=== PATIENT | female | born 1935 | race Caucasian/White ===

== ENCOUNTER 2017-06-23 19:35 | Emergency (ER) | payer MEDICARE ==
[~2017-06-23] VITALS: Ht 165.1 cm; Wt 76.4 kg
[2017-06-23 19:39] VITALS: BP 241/114; PULSE 92; RESP 20; TEMP 98.5; O2SAT 97
--- NOTE | 2017-06-23 20:37 | RADRPT ---
EXAM DATE/TIME: 06/23/2017 20:05 [facility] COMPARISON: No previous studies available for comparison. INDICATIONS : Left humerus pain after fall over dog. MEDICAL HISTORY : None. SURGICAL HISTORY : None. ENCOUNTER: Initial ACUITY: 1 day PAIN SCORE: 10/10 LOCATION: Left proximal humerus. FINDINGS: There is a proximal humeral neck fracture. No dislocation. No other fractures are seen. Bones are ost eopenic. CONCLUSION: 1. Humeral neck fracture with mild displacement. Darvin Merino MD on June 23, 2017 at 20:35 Board Certified Radiologist. This report was verified electronically.
[2017-06-23] MEDS ORDERED: TRAM50 PO (21:33)
--- NOTE | 2017-06-23 21:34 | PD ---
HPI Chief Complaint: Fall Time Seen by Provider: 21:24 Travel History International Travel<30 days: No Contact w/Intl Traveler<30days: No Traveled to known affect area: No History of Present Illness HPI Patient is an 82-year-old female presents emergency department for evaluation of left shoulder and left elbow pain after tripping over her dog at home. Patient denies adamantly hitting her head or her neck. Denies any other injuries to her chest abdomen pelvis lower extremities right upper extremity. Patient states the pain is fairly severe of her left shoulder, radiates down her left elbow, context as above, associated signs symptoms as above. Started just prior to arrival. PFSH Past Medical History Narrative Medical Hypercholesterolemia, hypertension Past Surgical History Narrative Surgical Mastectomy on the right Social History Tobacco Use: No Allergies-Medications (Allergen,Severity, Reaction): Coded Allergies: latex (Unverified Allergy, Severe, 11/04/16) Reported Meds & Prescriptions Reported Meds & Active Scripts Active Ultram (Tramadol HCl) 50 Mg Tab 50 Mg PO Q6H PRN Reported [Multivitamin] 1 Tab PO DAILY [Fish Oil] 3 Tab PO DAILY Lisinopril 20 Mg Tab 20 Mg PO DAILY Clonidine (Clonidine HCl) 0.1 Mg Tab 0.1 Mg PO BID Amlodipine (Amlodipine Besylate) 5 Mg Tab 5 Mg PO DAILY Pravastatin 80 Mg Tab 80 Mg PO DAILY Review of Systems Except as stated in HPI: all other systems reviewed are Neg Physical Exam Narrative GENERAL: Well-nourished, well-developed patient. Appears somewhat uncomfortable peer SKIN: Focused skin assessment warm/dry. HEAD: Normocephalic. Atraumatic EYES: No scleral icterus. No injection or drainage. NECK: Supple, trachea midline. No JVD or lymphadenopathy. CARDIOVASCULAR: Regular rate and rhythm without murmurs, gallops, or rubs. RESPIRATORY: Breath sounds equal bilaterally. No accessory muscle use. GASTROINTESTINAL: Abdomen soft, non-tender, nondistended. MUSCULOSKELETAL: No cyanosis, or edema. Significant tenderness to proximal humerus, no tenderness over the elbow, pulse motor and sensory intact distally in all 4 extremity's, no midline CT or L-spine tenderness, no vega signs no raccoons eyes. BACK: Nontender without obvious deformity. No CVA tenderness. Data Data Last Documented VS Vital Signs Date Time Temp Pulse Resp B/P (MAP) Pulse Ox O2 Delivery O2 Flow Rate FiO2 06/23/17 22:56 06/23/17 21:37 99 16 98 Room Air 06/23/17 19:39 98.5 Orders Orders Humerus (Min 2vws) (06/23/17 ) Elbow, Limited (Ap&Lat) (06/23/17 ) Tramadol (Ultram) (06/23/17 21:45) Ed Discharge Order (06/23/17 22:19) Sling And Swathe (06/23/17 ) MDM Medical Decision Making Medical Screen Exam Complete: Yes Emergency Medical Condition: Yes Differential Diagnosis Humerus fracture, elbow fracture, hypertensive emergency unlikely, head and neck injury highly unlikely. Narrative Course Patient room to the emergency department, x-rays as follows: Last 24 hours Impressions Humerus X-Ray 06/23/17 0000 Signed Impressions: Service Date/Time: Friday, June 23, 2017 20:05 - CONCLUSION: 1. Humeral neck fracture with mild displacement. Darvin Merino MD Elbow X-Ray 06/23/17 0000 Signed Impressions: Service Date/Time: Friday, June 23, 2017 21:43 - CONCLUSION: 1. No acute findings. Darvin Merino MD No indication for imaging of the head or neck. Patient was given Ultram and is feeling somewhat better after mobilization with sling and swath. Discussed follow-up with Dr. Taylor, discussed Intermedic management at home and return to ED criteria. Discussed fall prevention at home. Diagnosis Primary Impression: Proximal humerus fracture Referrals: Steve Taylor MD Med/Other Pt SpecificInfo: Prescription(s) given Scripts Tramadol (Ultram) 50 Mg Tab 50 MG PO Q6H Y for PAIN, #20 TAB 0 Refills Prov: Nathaniel Driscoll MD 06/23/17 Disposition: 01 DISCHARGE HOME Condition: Stable Nathaniel Driscoll MD Jun 23, 2017 21:34
[2017-06-23 21:37] VITALS: BP 190/109; PULSE 99; RESP 16; O2SAT 98
[2017-06-23] MEDS ORDERED: FISHOIL PO (21:37)
[2017-06-23] MEDS ORDERED: PRAV80TA2 PO (21:37)
[2017-06-23] MEDS ORDERED: MULTIVITAMIN PO (21:37)
[2017-06-23] MEDS ORDERED: CLON0.1T PO (21:37)
[2017-06-23] MEDS ORDERED: AMLO5TAB2 PO (21:37)
[2017-06-23] MEDS ORDERED: LISI-515 PO (21:37)
[2017-06-23] MEDS ORDERED: traMADol HCL 50 MG TAB PO ONE (21:45)
--- NOTE | 2017-06-23 22:18 | RADRPT ---
EXAM DATE/TIME: 06/23/2017 21:43 [facility] COMPARISON: No previous studies available for comparison. INDICATIONS : Left elbow pain post fall. MEDICAL HISTORY : None. SURGICAL HISTORY : None. ENCOUNTER: Initial ACUITY: 1 day PAIN SCORE: 7/10 LOCATION: Left upper extremity FINDINGS: Two view examination of the left elbow demonstrates no soft tissue swelling, joint effusion, fracture or dislocation. Bony mineralization is normal. CONCLUSION: 1. No acute findings. Darvin Merino MD on June 23, 2017 at 22:12 Board Certified Radiologist. This report was verified electronically.
[2017-06-24] MEDS ORDERED: MULTTAB67 PO (11:45)
[2017-06-24] MEDS ORDERED: FISH500C PO (11:47)
== END 2017-06-23 22:45 | disposition home or self-care (01) ==
LOC: NEPE 19:35
DX: S42.202A Unspecified fracture of upper end of left humerus, initial encounter for closed fracture (principal); W01.0XXA Fall on same level from slipping, tripping and stumbling without subsequent striking against object, initial encounter; Y92.009 Unspecified place in unspecified non-institutional (private) residence as the place of occurrence of the external cause; I10 Essential (primary) hypertension; E78.00 Pure hypercholesterolemia, unspecified; Z79.899 Other long term (current) drug therapy
CPT/HCPCS: 29240; 73060; 73070; 99283